=== PATIENT | male | born 1940 | race Caucasian/White ===

== ENCOUNTER 2023-01-21 12:50 | Outpatient (RCR) | payer MEDICARE, SELFPAY ==
--- NOTE | 2023-01-21 16:16 | PT.OPEX ---
PT [place] Outpatient Eval PT [facility] Outpatient Eval Start: 01/21/23 13:01 Freq: Status: Active Protocol: Document 01/21/23 13:05 YARON (Rec: 01/21/23 16:14 YARON [id number]) E-signed By Kristen Sage PT Physical Therapy Outpatient Evaluation Insurance Information Recert Due Date 04/20/23 Insurance Name Loc Medical Diagnosis LEFT OA M17.12 Treating Diagnosis LEFT KNEE PAIN M25.562 DIFFICULTY AMB R26.2 Referring MD GUTIERREZ Subjective Subjective I HAVEN'T BEEN ABLE TO WALK OR STAND MUCH FOR THE PAST YEAR AND HALF. IT'S REALLY HARD TO EVEN GET UP MY STEPS. 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 PVD AND CHARCOT FOOT Date of Last Physician Visit 12/09/22 Date of Next Physician Visit 01/29/23 Date of Surgery (If applicable) 02/04/23 Current Work Status Retired Preferred Name VAN Precautions Treatment Precautions/Contraindications COMORBIDITIES: PVD, PAF, AND THORACIC AAA WITH CHRONIC NON PRESSURE ULCERS BLE Objective Other/Pertinent Objective GAIT/FUNCTIONAL MOBILITY Single leg stance: RIGHT /LEFT GREAT DIFFICULTY D/T PVD Squat: LIMITED AND PAINFUL KNEE ROM Flexion: LEFT 126 AROM SUPINE Extension: LEFT +5 AROM SUPINE HIP ROM : WFL LLE MMT: 4-/5 JOINT MOBILITY/PALPATION : MEDIAL AND ANTERIOR JOINT LINE PAIN TX: SUPINE ANKLE PUMPS SUPINE QS SUPINE GS SUPINE HEEL SLIDES SUPINE TKE SUPINE SLR SEATED HR/TR SEATED KNEE EXT SEATED MARCHING SEATED HEEL SLIDE SEATED HAMSTRING STRETCH SEATED HAMSTRING STRETCH ON CHAIR Functional Test Performed & Score TU.2 SEC TINETTI:08/27 Assessment Assessment/Impression PATIENT IS A [address] 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 PATIENT LIVES WITH HIS SPOUSE IN A 2 STORY HOME WITH 2 STEPS TO ENTER WITH RAILING THROUGH THE GARAGE WELL FRONT DOOR. HIS BEDROOM AND MAIN BATHROOM WITH WALK IN SHOWER ARE LOCATED ON THE 2ND FLOOR WITH >10 STEPS W/RAILING. HE HAS RECENTLY EXPERIENCED OPEN SORES TO HIS LEFT LOWER EXTREMITY D/T PVD THAT ARE BEING MONITORED. HE IS IN GOOD SPIRITS REGARDING UPCOMING SURGERY AND EAGER TO REGAIN HIS ABILITY TO WALK W/O FATIGUE AND PAIN. HE HAS RECENTLY PURCHASED A SPC THAT HE HAS BEEN USING SINCE HIS MULTIPLE FALLS D/T BALANCE BUT WILL ALSO HAVE FWW TO USE POST OPERATIVELY. HIS SON WILL BE AVAILABLE TO ASSIST AFTER SURGERY ALONG WITH HIS . HE IS PLANNING ON SLEEPING IN HIS BED ON THE SECOND FLOOR POSTOPERATIVELY AND UNDERSTANDS THE DIFFICULTY AND RISKS INVOLVED. WE DISCUSSED POST OPERATIVELY SYMPTOM MGMT AND PRECAUTIONS REGARDING HIS ELIQUIS AND WEARING HIS SALEEM HOSE. HE VERBALIZED UNDERSTANDING OF ALL SKILLED INSTRUCTION THROUGH TEACH BACK AND PROVIDED A WRITTEN FOLDER WITH ALL THE INSTRUCTIONS AND EXERCISES TO FOLLOW AND FAMILIARIZE HIMSELF WITH PREOPERATIVELY. I WILL SEE ON 02/06/23 FOR FIRST POST OP. Primary Functional Limitations STRENGTH ROM GAIT STAIRS TRANSFERS Plan of Care Rehabilitation Potential Good Physical Therapy Goals ST. PATIENT WILL BE INDEPENDENT WITH HIS PREOPERATIVE HEP IN 1 WEEK. 2. PATIENT WILL VERBALIZE GOOD UNDERSTANDING OF SYMPTOM MGMT WELL WOUND MGMT IN 1 WEEK Coordination/Communication With Referral Source Treatment Plan/Direct Interventions Gait Training,Ice/Cold/ Vasopneumatic,Joint Mobilization,Manual Therapy, Neuromuscular Re-ed, Therapeutic Activities, Therapeutic Exercises Frequency/Duration 2X/WK FOR 8-10 WEEKS Patient Will Be Discharged From Therapy Completion of LTG(s), Independently Progressing Discharge Plan Comments DISCHARGE TO SELF WITH AN INDEPENDENT HEP WHEN GOALS MET Evaluation Billing PT Eval No Charge No Complexity High Certification Information Initial Certification Date 01/21/23 Ending Certification Date 04/20/23 Provider Signature Shows Agreement With POC & Medical Necessity Physician Comment/Change : Physician NPI Number #
== END 2023-03-27 15:26 | disposition home or self-care (01) ==
PROVIDERS: PCP Student in an Organized Health Care Education/Training Program; Visit Provider Orthopaedic Surgery Sports Medicine
DX: M17.12 Unilateral primary osteoarthritis, left knee (principal); Z96.652 Presence of left artificial knee joint; Z51.89 Encounter for other specified aftercare
CPT/HCPCS: 97110; 97163

== ENCOUNTER 2023-07-15 14:52 | Outpatient (CLI) | payer MEDICARE, SELFPAY | END 2023-07-15 14:53 | disposition home or self-care (01) | LOC: NFLDREF 07-17 10:38 | PROVIDERS: PCP Student in an Organized Health Care Education/Training Program; Referring Provider Student in an Organized Health Care Education/Training Program; Visit Provider Physician Assistant | DX: R30.0 Dysuria (principal); N39.0 Urinary tract infection, site not specified | CPT/HCPCS: 87086; 87186 ==

== ENCOUNTER 2023-08-10 15:19 | Emergency (ER) | payer MEDICARE, SELFPAY ==
[2023-08-10] VITALS (9 sets, daily range): BP systolic 124–143; BP diastolic 81–86; PULSE 59–80; RESP 20; TEMP 35.7; O2SAT 92–96; BMI 33.5
--- NOTE | 2023-08-10 15:56 | ED_ITS ---
HPI - SOB/Dyspnea General Chief Complaint: Shortness of Breath/Dyspnea Stated Complaint: Short of breath Time Seen by Provider: 08/10/23 15:31 History of Present Illness HPI Narrative: This 83-year-old male comes in stating that he has shortness of breath because of fluid overload. He states that he took Lasix for about 5 days about a month ago and lost 4 5 lb at that time and stated that this helped his breathing. This medicine was then discontinued until about 5 days ago when it was restarted because he was retaining fluid again. He states that he has continued to gain weight and has not been voiding urine despite taking the Lasix over these past few days. He was into a clinic appointment and was instructed to come here for further management. The patient denies having any chest pain. He states that he is in a rehab program and reports that he had oximetry at 96% at rest and it decreased to 91% with exertion. Today he states that he had to stop when ambulating from the car into the emergency department. At rest he does not show any sign of shortness of breath. Related Data Home Medications Medication Instructions Recorded Confirmed allopurinol 100 mg tablet 200 mg PO QDAY 08/23/22 07/15/23 amlodipine 5 mg tablet 5 mg PO QDAY 08/23/22 07/15/23 apixaban 2.5 mg tablet (Eliquis) 2.5 mg PO BID 08/23/22 07/15/23 atorvastatin 80 mg tablet 80 mg PO QHS 08/23/22 07/15/23 metoprolol tartrate 50 mg tablet 50 mg PO BID 08/23/22 07/15/23 omeprazole 20 mg capsule,delayed 20 mg PO BID 08/23/22 07/15/23 release tamsulosin 0.4 mg capsule ea PO 08/23/22 07/15/23 furosemide 20 mg tablet 20 mg PO QAM 08/10/23 08/10/23 Previous Rx's Medication Instructions Recorded furosemide 20 mg tablet (Lasix) 20 mg PO DAILY #30 tabs 08/10/23 Allergies Allergy/AdvReac Type Severity Reaction Status Date / Time No Known Drug Allergies Allergy Verified 07/15/23 15:01 Review of Systems Status of ROS: Reports: 10 or more systems reviewed and unremarkable except as noted in History and below Narrative: Constitutional: No fevers, no weight gain or loss. Eyes: No discharge. No vision changes. HENT: No congestion, no sore throat, no ear pain. Cardiovascular: No chest pain, no palpitations. Respiratory: No wheezes, no cough. Shortness of breath with exertion as described above. Gastrointestinal: No abdominal pain, no vomiting, no diarrhea. Genitourinary: No dysuria, no hematuria. Musculoskeletal: Normal range of motion. Left knee pain from arthritis. Skin: No rashes, no pruritis. Neurological: No dizziness, weakness, sensory change, speech change. Endo/Heme/Allergies: No bruising or bleeding. No polydipsia. Pysch: no suicidality, no anxiety, no insomnia. All other systems reviewed and are negative. [facility] Medical History (Updated 08/10/23 @ 16:44 by Willy Naidu MD) Encounter for screening for severe acute respiratory syndrome coronavirus 2 (SARS-CoV-2) infection ?Z11.52 - Encounter for screening for COVID-19 (ICD-10) Hyperlipidemia ?E78.5 - Hyperlipidemia, unspecified (ICD-10) Hypertension ?I10 - Essential (primary) hypertension (ICD-10) Ulcer of lower extremity ?L97.909 - Non-pressure chronic ulcer of unspecified part of unspecified lower leg with unspecified severity (ICD-10) Acquired pes planus of both feet ?M21.41 - Flat foot [pes planus] (acquired), right foot (ICD-10) ?M21.42 - Flat foot [pes planus] (acquired), left foot (ICD-10) Surgical History (Updated 12/03/22 @ 15:40 by Arabella Sandy) 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) ?Z96.651 - Presence of right artificial knee joint (ICD-10) H/O hernia repair (08/09/15) ?Z98.890 - Other specified postprocedural states (ICD-10) ?Z87.19 - Personal history of other diseases of the digestive system (ICD-10) H/O cystoscopy (05/30/19) ?Z98.890 - Other specified postprocedural states (ICD-10) Status post right foot surgery (06/13/21) ?Z98.890 - Other specified postprocedural states (ICD-10) Family History (Updated 01/13/23 @ 10:49 by Ginna Roberts RN) Father Abdominal aneurysm High blood pressure Hyperlipidemia Brother Hyperlipidemia Mother Breast cancer Social History (Reviewed 12/09/22 @ 14:33 by Edith Doe ~ [facility]) Smoking Status: Never smoker Do you use any of these nicotine containing products: None How often do you have a drink containing alcohol: 4 or more times a week Alcohol type: wine How many standard drinks containing alcohol do you have on a typical day: 3 or 4 How often do you have six or more drinks on one occasion: Never AUDIT-C Alcohol total score: 5 Non-prescribed substance use: denies use Caffeine: Yes (coffee, 3-4 cups/day; pop 5 cans/week) Exam Narrative: Exam Narrative: Constitutional: Well-developed, well-nourished, no acute distress. HEENT: Normocephalic, atraumatic. Neck: Normal range of motion. Nontender. Supple. Heart: Regular. No murmurs. Normal rate. Intact distal pulses. Lungs: Clear to auscultation. No chest discomfort. No wheezes, rhonchi, or rales. Abdomen: Normal bowel sounds. Nontender. No rebound tenderness. Genitalia: Deferred. Back: No midline tenderness. Normal range of motion. Extremities: Normal range of motion. No injury. Bilateral pedal edema. Skin: Intact. No rash. Warm. No erythema or pallor. Neurologic: No altered sensation. No weakness. Alert and oriented. Psychiatric: No suicidality. No anxiety or depression. No insomnia. Nursing notes and vitals signs are reviewed. Const: Vital Signs, click to edit/add: Vital Signs - 24 hr 08/10/23 15:23 08/10/23 15:43 08/10/23 15:44 Temperature 96.3 F L Pulse Rate 59 L 70 Pulse Rate [Pulse Oximeter] 70 Respiratory Rate 20 Blood Pressure 124/81 Blood Pressure [Ri ght Upper Arm] 143/86 H Pulse Oximetry 96 95 95 Oxygen Delivery Me thod Room Air 08/10/23 15:45 08/10/23 16:00 08/10/23 16:02 Temperature Pulse Rate 67 69 80 Pulse Rate [Pulse Oximeter] Respiratory Rate Blood Pressure 129/82 Blood Pressure [Ri ght Upper Arm] Pulse Oximetry 95 93 92 Oxygen Delivery Me thod 08/10/23 16:15 Temperature Pulse Rate 76 Pulse Rate [Pulse Oximeter] Respiratory Rate Blood Pressure Blood Pressure [Ri ght Upper Arm] Pulse Oximetry 93 Oxygen Delivery Me thod Course Vital Signs Vital signs: Initial Vital Signs Temperature 96.3 F L 08/10/23 15:23 Temperature Source Temporal Artery Scan 08/10/23 15:23 Pulse Rate 70 08/10/23 15:23 Respiratory Rate 20 08/10/23 15:23 Blood Pressure 143/86 H 08/10/23 15:23 Blood Pressure Mean 105 08/10/23 15:23 Blood Pressure Position Sitting 08/10/23 15:23 Pulse Oximetry 96 08/10/23 15:23 Oxygen Delivery Method Room Air 08/10/23 15:23 Vital Signs Temperature 96.3 F L 08/10/23 15:23 Pulse Rate 70 08/10/23 15:23 Respiratory Rate 20 08/10/23 15:23 Blood Pressure 143/86 H 08/10/23 15:23 Pulse Oximetry 96 08/10/23 15:23 Oxygen Delivery Method Room Air 08/10/23 15:23 Temperature 96.3 F L 08/10/23 15:23 Pulse Rate 76 08/10/23 16:15 Respiratory Rate 20 08/10/23 15:23 Blood Pressure 129/82 08/10/23 16:02 Pulse Oximetry 93 08/10/23 16:15 Oxygen Delivery Method Room Air 08/10/23 15:23 Medications Administered Medications: Discontinued Medications Generic Name Dose Route Start Last Admin Trade Name Freq PRN Reason Stop Dose Admin Furosemide 40 mg 08/10/23 15:55 08/10/23 16:03 Furosemide 10 Mg/Ml Inj IVP 08/10/23 15:56 40 mg ONCE ONE Administration MDM - SOB/Dyspnea MDM Narrative Medical decision making narrative: This patient has been working with his regular primary physician regarding fluid overload. He resume taking Lasix apparently at 20 mg a few days ago but states that he has instead gained weight. He arrives here with oximetry at 94-95% on room air. At rest he is not showing any sign of shortness of breath. He states that he had to stop and rest once when coming in from the car. EKG and lab resu lts here returned with reassuring findings. His creatinine is at 1.9 today. I do not have access to his clinic records as that is in a different system. The patient states that at 1 point a few weeks ago his creatinine returned at 2.85. After this it was measured at 1.2. The patient did receive 40 mg of Lasix intravenously here. I did prescribe extra tablets of 20 mg dosing for Lasix and recommended that he take 40 mg or 2 tablets daily and then follow up with his primary physician. The patient states that he does have a follow-up appointment with his doctor next week. Lab Data Labs: Lab Results 08/10/23 08/10/23 Range/Units 15:43 16:00 WBC 4.56 (4.50-11.00) K/uL RBC 4.01 L (4.30-5.90) m/uL Hgb 11.7 L (13.5-17.5) gm/dL Hct 37.8 (37.0-53.0) % MCV 94 (80-100) fL MCH 29 (26-34) pg MCHC 31 L (32-36) gm/dL RDW Coeff of Jessica 16.3 H (11.5-15.5) % Plt Count 190 (140-440) K/uL Neut % (Auto) 64.2 (42.0-72.0) % Lymph % (Auto) 19.3 L (20-44) % [place] % (Auto) 11.4 H (0.0-11.0) % Eos % (Auto) 3.5 (0.0-7.0) % Baso % (Auto) 0.9 (0.0-3.0) % Neut # (Auto) 2.93 (1.7-7.0) K/uL Lymph # (Auto) 0.90 (0.90-2.90) K/uL [place] # (Auto) 0.50 (0.00-0.90) K/UL Eos # (Auto) 0.16 (0.00-0.50) K/uL Baso # (Auto) 0.04 (0.00-0.30) K/uL Abs Immat Gran (auto) 0.03 (0.00-0.30) K/uL Imm/Tot Granulo (auto) 0.7 % Sodium 139 (135-149) mmol/L Potassium 4.4 (3.6-5.1) mmol/L Chloride 109 (96-114) mmol/L Carbon Dioxide 19 L (20-32) mmol/L Anion Gap 11 (7-15) mEq/L BUN 40 H (7-30) mg/dL Creatinine 1.9 H (0.5-1.5) mg/dL Estimated Creat Clear 31.77 Estimated GFR 34 ml/min Glucose 104 (60-115) mg/dL Calcium 9.3 (8.4-10.6) mg/dL NT-Pro-B Natriuret Pep 2060 pg/mL POC Troponin I 0.00 L (0.01-0.04) ng/ml ECG Data Attestation: I personally reviewed and interpreted this ECG as follows: Interpretation: Atrial fibrillation. Rate is 62 beats per minute. There are no specific ST or T-wave abnormalities. Discharge Plan Discharge Clinical Impression: Congestive heart failure Patient Disposition: Home, Self-Care Condition: Unchanged Additional Instructions: Take Lasix 2 tablets or 40 mg daily and follow up with primary physician to review medications. Return if worsening. Prescriptions: New furosemide [Lasix] 20 mg tablet 20 mg PO DAILY Qty: 30 2RF No Action metoprolol tartrate 50 mg tablet 50 mg PO BID Patient Comments: TAKE 1 TABLET BY MOUTH TWO TIMES DAILY. omeprazole 20 mg capsule,delayed release(DR/EC) 20 mg PO BID Patient Comments: TAKE 1 CAPSULE BY MOUTH ONCE DAILY BEFORE A MEAL. TAKE 30-60 MINUTES BEFORE A MEAL/FOOD ONCE A DAY. allopurinol 100 mg tablet 200 mg PO QDAY Patient Comments: TAKE 2 TABLETS BY MOUTH ONCE DAILY. amlodipine 5 mg tablet 5 mg PO QDAY atorvastatin 80 mg tablet 80 mg PO QHS Patient Comments: TAKE 1 TABLET BY MOUTH AT BEDTIME tamsulosin 0.4 mg capsule PO Patient Comments: TAKE 1 CAPSULE (0.4 MG) BY MOUTH ONCE DAILY AFTER A MEAL. Eliquis 2.5 mg tablet 2.5 mg PO BID furosemide 20 mg tablet 20 mg PO QAM Follow Up/Referrals: LEXIE ZUNIGA DO [Primary Care Provider] - Stand Alone [facility]
[2023-08-10] MEDS: FUROSEMIDE 10 MG/ML inj 40 MG IVP (16:03)
[2023-08-10 16:08] LABS: Basophils Absolute Auto 0.04 K/uL (0.00-0.30); Basophils Percent Auto 0.9 % (0.0-3.0); Chloride* 109 mmol/L (96-114); Eosinophils Absolute Auto 0.16 K/uL (0.00-0.50); Eosinophils Percent Auto 3.5 % (0.0-7.0); Hematocrit 37.8 % (37.0-53.0); Hemoglobin* 11.7 gm/dL (13.5-17.5); Immature Granulocytes Abs Auto 0.03 K/uL (0.00-0.30); Immature Granulocytes Pct Auto 0.7 %; Lymphocytes Percent Auto 19.3 % (20-44); Mean Corpuscular HGB Conc 31 gm/dL (32-36); Mean Corpuscular Hemoglobin 29 pg (26-34); Mean Corpuscular Volume 94 fL (80-100); Monocytes Percent Auto 11.4 % (0.0-11.0); Neutrophils Absolute Auto 2.93 K/uL (1.7-7.0); Neutrophils Percent Auto 64.2 % (42.0-72.0); Platelet Count* 190 K/uL (140-440); Potassium* 4.4 mmol/L (3.6-5.1); RDW Coefficient of Variation % 16.3 % (11.5-15.5); Red Blood Count 4.01 m/uL (4.30-5.90); Sodium* 139 mmol/L (135-149); White Blood Count* 4.56 K/uL (4.50-11.00)
[2023-08-10 16:11] LABS: Anion Gap 11 mEq/L (7-15); Carbon Dioxide* 19 mmol/L (20-32); Creatinine* 1.9 mg/dL (0.5-1.5); Est. Creatinine Clearance* 31.77; Estimated Glomerular Filt Rate 34 ml/min
[2023-08-10 16:12] LABS: Blood Urea Nitrogen* 40 mg/dL (7-30); Calcium* 9.3 mg/dL (8.4-10.6); Glucose* 104 mg/dL (60-115)
[2023-08-10 16:24] LABS: NT Pro B Type NatriureticPept* 2060 pg/mL; Slide Review Reflex No
== END 2023-08-10 17:13 | disposition home or self-care (01) ==
PROVIDERS: Emergency Provider Emergency Medicine Emergency Medical Services; PCP Student in an Organized Health Care Education/Training Program
DX: I50.9 Heart failure, unspecified (principal)
CPT/HCPCS: 36415; 80048; 83880; 84484; 85025; 93005; 96374; 99284; J1940

== ENCOUNTER 2023-08-21 11:50 | Emergency (ER) | payer MEDICARE, SELFPAY ==
[2023-08-21] VITALS (69 sets, daily range): BP systolic 74–129; BP diastolic 45–91; PULSE 50–66; RESP 24; TEMP 32.3–33.6; O2SAT 85–97
--- NOTE | 2023-08-21 12:00 | ED.NURSE ---
Triston Duarte applied to pt.
[2023-08-21 12:24] LABS: Lactate* 1.3 mmol/L (0.5-1.9)
--- NOTE | 2023-08-21 12:30 | ED.GENADULT ---
HPI - General Adult General Date Seen: 08/21/23 Chief complaint: Weakness Stated complaint: Syncope Time Seen by Provider: 08/21/23 12:04 History of Present Illness HPI narrative: 83-year-old gentleman presenting to the ER today by EMS. History is limited by acuity and mental status History from EMS is that he has had some recent lower extremity edema and has had increasing doses of Lasix at home. He was supposed to have gone into the clinic today for an echocardiogram. He had 2 falls yesterday. This morning his neighbor came over to drive him to his appointment. He was dizzy and had a syncopal event and went unresponsive. 911 was called. When they arrived the patient was unresponsive and bradycardic. They administered atropine for heart rate in the 30s. Heart rate came u to the 50s. History from the patient is difficult. His speech is slurred and at times are not understand. It sounds like he has had peripheral edema for the past couple of weeks. He has been getting weaker lately. He says he was normal this morning and in the kitchen before his appointment. He wanted to drive himself but instead is neighbor came to take him to his appointment. He has not had any recent fever. No cough. No chest pain. When asked directly he does say that he got short of breath last night walking up the steps. History from the patient's and neighbor is that he does have a history of CHF. He has had increased peripheral edema lately and has had open sores that have been weeping from both of his legs. His [facility] doctors increased his Lasix from 20 mg up to 40 mg last week. He was supposed to have gone for a follow-up echo which was scheduled for today. notes that he has been very weak the past several days. He has had slurred speech all week long. It does not really come or go. She also suspects he may have a left facial droop. Yesterday he had 2 or maybe 3 falls. One of them occurred when he apparently tried to grab onto an office chair that was on wheels and rotated. He lost his balance. Another fall occurred after he had walked up a flight of steps. It sounds like he just got weak and fell to the floor. He does not recall those events to be associated with any chest pain, palpitations. He was definitely short of breath when he got to the top of the steps. No known injuries from the fall. He denies any pain. As he is resting in bed he feels comfortable. His core temperature was 90? F taken orally when he arrived here. He was bradycardic to the 40s. We established active external rewarming with Triston Hugger. Heart rate has now come up to the 50s during my evaluation. 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 Lipitor 80 mg Celebrex 100 mg Oxycodone 5 mg Flomax Amoxicillin before dental appointment Labs: 08/06 Sodium 142, potassium 4.7, chloride 108, bicarb 23, BUN 28, creatinine 1.34, BNP 2 332 06/01 Creatinine 1.26 Related Data Home Medications Medication Instructions Recorded Confirmed allopurinol 100 mg tablet 200 mg PO QDAY 08/23/22 08/21/23 amlodipine 5 mg tablet 5 mg PO QDAY 08/23/22 08/21/23 apixaban 2.5 mg tablet (Eliquis) 2.5 mg PO BID 08/23/22 08/21/23 atorvastatin 80 mg tablet 80 mg PO QHS 08/23/22 08/21/23 metoprolol tartrate 50 mg tablet 50 mg PO BID 08/23/22 08/21/23 omeprazole 20 mg capsule,delayed 20 mg PO BID 08/23/22 08/21/23 release tamsulosin 0.4 mg capsule 0.4 mg PO Q24H 08/23/22 08/21/23 furosemide 20 mg tablet 20 mg PO QAM 08/10/23 08/21/23 celecoxib 100 mg capsule 100 mg PO BID 08/21/23 08/21/23 Previous Rx's Medication Instructions Recorded furosemide 20 mg tablet (Lasix) 20 mg PO DAILY #30 tabs 08/10/23 Allergies Allergy/AdvReac Type Severity Reaction Status Date / Time No Known Drug Allergies Allergy Verified 08/21/23 16:28 PFSH PFS Medical History (Updated 08/21/23 @ 16:52 by Pablito Bey MD) Encounter for screening for severe acute respiratory syndrome coronavirus 2 (SARS-CoV-2) infection ?Z11.52 - Encounter for screening for COVID-19 (ICD-10) Hyperlipidemia ?E78.5 - Hyperlipidemia, unspecified (ICD-10) Hypertension ?I10 - Essential (primary) hypertension (ICD-10) Ulcer of lower extremity ?L97.909 - Non-pressure chronic ulcer of unspecified part of unspecified lower leg with unspecified severity (ICD-10) Acquired pes planus of both feet ?M21.41 - Flat foot [pes planus] (acquired), right foot (ICD-10) ?M21.42 - Flat foot [pes planus] (acquired), left foot (ICD-10) Surgical History (Updated 12/03/22 @ 15:40 by Arabella Sandy) 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) ?Z96.651 - Presence of right artificial knee joint (ICD-10) H/O hernia repair (08/09/15) ?Z98.890 - Other specified postprocedural states (ICD-10) ?Z87.19 - Personal history of other diseases of the digestive system (ICD-10) H/O cystoscopy (05/30/19) ?Z98.890 - Other specified postprocedural states (ICD-10) Status post right foot surgery (06/13/21) ?Z98.890 - Other specified postprocedural states (ICD-10) Family History (Updated 01/13/23 @ 10:49 by Ginna Roberts RN) Father Abdominal aneurysm High blood pressure Hyperlipidemia Brother Hyperlipidemia Mother Breast cancer Social History (Reviewed 12/09/22 @ 14:33 by Edith Quick [facility], [facility]) Smoking Status: Never smoker Do you use any of these nicotine containing products: None How often do you have a drink containing alcohol: 4 or more times a week Alcohol type: wine How many standard drinks containing alcohol do you have on a typical day: 3 or 4 How often do you have six or more drinks on one occasion: Never AUDIT-C Alcohol total score: 5 Non-prescribed substance use: denies use Caffeine: Yes (coffee, 3-4 cups/day; pop 5 cans/week) Exam Narrative: Exam Narrative: Constitutional: Appears well-developed and well-nourished. Alert. Initially seems confused and speech is slurred but actually is alert and oriented to person place and time. He is able to recall 2 most details of this morning. He is not able to recall all the details of his falls yesterday or the past couple of days. Limited historian. HENT: Head: No depressed skull fracture, Raccoon Eyes, Serrano's sign, or hemotympanum. Face normal. TMs normal Nose: Nose normal. Mouth/Throat: Oral mucosa is clear but very dry. Mucous membranes are desiccated. no trismus. Pharynx normal. Tonsils symmetric. No tonsillar enlargement, erythema, or exudate. Eyes: Conjunctivae normal. EOM normal. Pupils equal, has had previous cataract surgery making his right pupil slightly irregular, and reactive to light. No scleral icterus. Neck: Normal range of motion. Neck supple. No tracheal deviation present. No posterior midline tenderness or step-off. Cardiovascular: Bradycardic, heart rate in the 50s, regular rhythm. No gallop. No friction rub. No murmur heard. Symmetric radial artery pulses . Not able to palpate pulses in his feet. Pulmonary/Chest: Effort normal. No stridor. No respiratory distress. No wheezes. No rales. No rhonchi . No tenderness. Abdominal: Soft. Bowel sounds normal. No distension. No mass. No tenderness. No rebound. No guarding. Musculoskeletal: RUE: Normal range of motion. No tenderness. No deformity LUE: Normal range of motion. No tenderness. No deformity Pelvis stable. Back nontender RLE: No tenderness, deformity, obvious injury. He does have trace amount of edema affecting his feet and ankle. He has chronic skin changes and thickening suggesting that he has the presence of some chronic edema. He has some open sores on his abdi. No active drainage but family reports a lot of serous drainage over the past few days. That skin of the abdi and calf and foot is pink but not warm to the touch. Normal blanching and cap refill . Not able to palpate DP pulses but that might be due to chronic thickening of the skin of the foot from his edema. Normal cap refill in the foot. LLE:No tenderness, deformity, obvious injury. He does have trace amount of edema affecting his feet and ankle. He has chronic skin changes and thickening suggesting that he has the presence of some chronic edema. He has some open sores on his abdi. No active drainage but family reports a lot of serous drainage over the past few days. That skin of the abdi and calf and foot is pink but not warm to the touch. Normal blanching and cap refill . Not able to palpate DP pulses but that might be due to chronic thickening of the skin of the foot from his edema. Normal cap refill in the foot. Right and left lower extremities are symmetric and there edema and redness. Lymph: No no ascending lymphangitis Neurological: . Attention normal. Alert and oriented x3. GCS 15. Memory limited. He gets confused when talking about his fall yesterday. Unreliable historian.. Speech slurred and sometimes seems to have garbled speech and she was the wrong words. At other times his speech is only minimally slurred and very comprehensible. Cranial Nerves intact II-XII except for subtle left facial droop at the corner of the mouth. He has intact sensory function bilaterally in V1, V2, V3. I did not formally test gag or visual acuity. EOMI. Palate elevates symmetrically and tongue protrudes in the midline. Strength: 5/5 trapezius on the right and left 5/5 deltoid on the right and left 5/5 biceps on the right and left 5/5 triceps on the right and left 5/5 blade groover on the right and left 5/5 thumb opposition on the right and left 5/5 finger abduction on the right and left Strength testing in the lower extremities is limited by his generalized weakness but he is able to lift each leg off the bed 5/5 hip flexors (L3) on the right and left 5/5 quadriceps (L4) on the right and left 5/5 tibialis anterior on the right and left 5/5 EHL (L5) on the right and left 5/5 gastrocnemius (S1) on the right and left 5/5 hamstring on the right and left Sensation intact to light touch in both upper extremities (C4-T1) Sensation intact to light touch in Both lower extremities (L4-S1). Upper extremity coordination normal. Gait not assessable due to weakness Skin: Ulcers on his shins, erythema of both lower extremities but no warmth. No other rash noted. No pallor. Normal capillary refill. Psychiatric: Normal mood. Normal affect. Const: Vital Signs, click to edit/add: Vital Signs - 24 hr 08/21/23 11:56 08/21/23 12:15 08/21/23 12:16 Temperature 90.2 F L Pulse Rate 54 L 56 L Pulse Rate [Pulse Oximeter] 60 Respiratory Rate 24 Blood Pressure 103/69 Blood Pressure [Ri ght Upper Arm] 104/70 Pulse Oximetry 95 95 94 Oxygen Delivery Me thod Room Air Oxygen Flow Rate Fraction of Inspir ed Oxygen 08/21/23 12:22 08/21/23 12:30 08/21/23 12:32 Temperature Pulse Rate 63 59 L 59 L Pulse Rate [Pulse Oximeter] Respiratory Rate Blood Pressure 97/69 100/71 Blood Pressure [Ri ght Upper Arm] Pulse Oximetry 96 94 94 Oxygen Delivery Me thod Oxygen Flow Rate Fraction of Inspir ed Oxygen 08/21/23 12:41 08/21/23 12:41 08/21/23 12:45 Temperature Pulse Rate 56 L 56 L 54 L Pulse Rate [Pulse Oximeter] Respiratory Rate Blood Pressure 96/68 96/68 Blood Pressure [Ri ght Upper Arm] Pulse Oximetry 94 94 94 Oxygen Delivery Me thod Oxygen Flow Rate Fraction of Inspir ed Oxygen 08/21/23 12:54 08/21/23 13:02 08/21/23 13:05 Temperature 90.6 F L Pulse Rate 58 L 52 L Pulse Rate [Pulse Oximeter] Respiratory Rate Blood Pressure Blood Pressure [Ri ght Upper Arm] Pulse Oximetry 93 93 Oxygen Delivery Me thod Oxygen Flow Rate Fraction of Inspir ed Oxygen 08/21/23 13:15 08/21/23 13:16 08/21/23 13:22 Temperature Pulse Rate 57 L 55 L 54 L Pulse Rate [Pulse Oximeter] Respiratory Rate Blood Pressure 99/69 90/77 Blood Pressure [Ri ght Upper Arm] Pulse Oximetry 91 92 88 Oxygen Delivery Me thod Oxygen Flow Rate Fraction of Inspir ed Oxygen 08/21/23 13:23 08/21/23 13:32 08/21/23 13:38 Temperature 90.8 F L Pulse Rate 56 L Pulse Rate [Pulse Oximeter] Respiratory Rate Blood Pressure 95/70 Blood Pressure [Ri ght Upper Arm] Pulse Oximetry 93 Oxygen Delivery Me thod Oxygen Flow Rate Fraction of Inspir ed Oxygen 08/21/23 13:42 08/21/23 13:45 08/21/23 13:51 Temperature Pulse Rate 56 L 56 L 54 L Pulse Rate [Pulse Oximeter] Respiratory Rate Blood Pressure 93/67 96/68 Blood Pressure [Ri ght Upper Arm] Pulse Oximetry 89 89 90 Oxygen Delivery Me thod Oxygen Flow Rate Fraction of Inspir ed Oxygen 08/21/23 14:00 08/21/23 14:01 08/21/23 14:02 Temperature 91.0 F L Pulse Rate 56 L Pulse Rate [Pulse Oximeter] Respiratory Rate Blood Pressure 91/62 Blood Pressure [Ri ght Upper Arm] Pulse Oximetry 89 90 Oxygen Delivery Me thod Oxygen Flow Rate Fraction of Inspir ed Oxygen 08/21/23 14:17 08/21/23 14:19 08/21/23 14:33 Temperature Pulse Rate 50 L Pulse Rate [Pulse Oximeter] Respiratory Rate Blood Pressure 88/57 L 82/50 L Blood Pressure [Ri ght Upper Arm] Pulse Oximetry 96 Oxygen Delivery Me thod Oxygen Flow Rate Fraction of Inspir ed Oxygen 08/21/23 14:43 08/21/23 14:45 08/21/23 14:47 Temperature Pulse Rate 57 L 57 L 55 L Pulse Rate [Pulse Oximeter] Respiratory Rate Blood Pressure 84/65 L Blood Pressure [Ri ght Upper Arm] Pulse Oximetry 92 92 92 Oxygen Delivery Me thod Oxygen Flow Rate Fraction of Inspir ed Oxygen 08/21/23 14:48 08/21/23 14:51 08/21/23 14:51 Temperature 91.4 F L Pulse Rate 52 L 51 L Pulse Rate [Pulse Oximeter] Respiratory Rate Blood Pressure 86/60 L Blood Pressure [Ri ght Upper Arm] Pulse Oximetry 93 91 Oxygen Delivery Me thod Oxygen Flow Rate Fraction of Inspir ed Oxygen 08/21/23 15:00 08/21/23 15:01 08/21/23 15:02 Temperature Pulse Rate 52 L 54 L 57 L Pulse Rate [Pulse Oximeter] Respiratory Rate Blood Pressure 81/60 L 83/59 L Blood Pressure [Ri ght Upper Arm] Pulse Oximetry 90 91 90 Oxygen Delivery Me thod Oxygen Flow Rate Fraction of Inspir ed Oxygen 08/21/23 15:12 08/21/23 15:15 08/21/23 15:22 Temperature Pulse Rate 54 L 54 L 55 L Pulse Rate [Pulse Oximeter] Respiratory Rate Blood Pressure 74/45 L 81/65 L Blood Pressure [Ri ght Upper Arm] Pulse Oximetry 89 89 89 Oxygen Delivery Me thod Oxygen Flow Rate Fraction of Inspir ed Oxygen 08/21/23 15:23 08/21/23 15:24 08/21/23 15:30 Temperature 91.8 F L Pulse Rate 59 L 53 L Pulse Rate [Pulse Oximeter] Respiratory Rate Blood Pressure Blood Pressure [Ri ght Upper Arm] Pulse Oximetry 90 89 Oxygen Delivery Me thod Oxygen Flow Rate Fraction of Inspir ed Oxygen 08/21/23 15:32 08/21/23 15:42 08/21/23 15:43 Temperature Pulse Rate 54 L 58 L 58 L Pulse Rate [Pulse Oximeter] Respiratory Rate Blood Pressure 78/54 L 108/74 Blood Pressure [Ri ght Upper Arm] Pulse Oximetry 88 89 88 Oxygen Delivery Me thod Oxygen Flow Rate Fraction of Inspir ed Oxygen 08/21/23 15:45 08/21/23 15:52 08/21/23 15:59 Temperature 91.9 F L Pulse Rate 58 L 65 Pulse Rate [Pulse Oximeter] Respiratory Rate Blood Pressure 125/59 L Blood Pressure [Ri ght Upper Arm] Pulse Oximetry 88 85 L Oxygen Delivery Me thod OxyMask Oxygen Flow Rate 6 Fraction of Inspir ed Oxygen 08/21/23 16:00 08/21/23 16:02 08/21/23 16:32 Temperature Pulse Rate 62 Pulse Rate [Pulse Oximeter] Respiratory Rate Blood Pressure 129/91 H 115/89 Blood Pressure [Ri ght Upper Arm] Pulse Oximetry 89 96 Oxygen Delivery Me thod OxyMask OxyMask CPAP Oxygen Flow Rate 6 6 Fraction of Inspir ed Oxygen 40 08/21/23 16:33 08/21/23 16:40 08/21/23 16:42 Temperature Pulse Rate 60 Pulse Rate [Pulse Oximeter] Respiratory Rate Blood Pressure 108/80 Blood Pressure [Ri ght Upper Arm] Pulse Oximetry 96 95 Oxygen Delivery Me thod CPAP CPAP Oxygen Flow Rate Fraction of Inspir ed Oxygen 40 40 40 08/21/23 16:45 08/21/23 16:46 08/21/23 16:58 Temperature 92.3 F L Pulse Rate 62 58 L Pulse Rate [Pulse Oximeter] Respiratory Rate Blood Pressure 110/78 Blood Pressure [Ri ght Upper Arm] Pulse Oximetry 95 95 Oxygen Delivery Me thod CPAP CPAP Oxygen Flow Rate Fraction of Inspir ed Oxygen 40 40 08/21/23 17:33 Temperature 92.5 F L Pulse Rate Pulse Rate [Pulse Oximeter] Respiratory Rate Blood Pressure Blood Pressure [Ri ght Upper Arm] Pulse Oximetry Oxygen Delivery Me thod Oxygen Flow Rate Fraction of Inspir ed Oxygen Course Vital Signs Vital signs: Initial Vital Signs Temperature 90.2 F L 08/21/23 11:56 Temperature Source Oral 08/21/23 11:56 Pulse Rate 60 08/21/23 11:56 Respiratory Rate 24 08/21/23 11:56 Blood Pressure 104/70 08/21/23 11:56 Blood Pressure Mean 81 08/21/23 11:56 Blood Pressure Position Supine 08/21/23 11:56 Pulse Oximetry 95 08/21/23 11:56 Oxygen Delivery Method Room Air 08/21/23 11:56 Vital Signs Temperature 90.2 F L 08/21/23 11:56 Pulse Rate 60 08/21/23 11:56 Respiratory Rate 24 08/21/23 11:56 Blood Pressure 104/70 08/21/23 11:56 Pulse Oximetry 95 08/21/23 11:56 Oxygen Delivery Method Room Air 08/21/23 11:56 Temperature 92.5 F L 08/21/23 17:33 Pulse Rate 58 L 08/21/23 16:46 Respiratory Rate 24 08/21/23 11:56 Blood Pressure 110/78 08/21/23 16:46 Pulse Oximetry 95 08/21/23 16:46 Oxygen Delivery Method CPAP 08/21/23 16:46 Oxygen Flow Rate 6 08/21/23 16:02 Fraction of Inspired Oxygen 40 08/21/23 16:46 Medications Administered Medications: Generic Name Dose Route Start Last Admin Trade Name Freq PRN Reason Stop Dose Admin Piperacillin Sod/Tazobactam 100 mls @ 200 mls/hr 08/21/23 13:30 08/21/23 14:20 Sod 4.5 gm/ Sodium Chloride IVPB Infused Q6H DYLAN Infusion Norepinephrine/Dextrose 4,000 mcg in 250 mls @ 42.354 mls/hr 08/21/23 15:00 08/21/23 15:35 Norepinephrine 4 Mg/250 Ml IV 0.2 mcg/kg/min CONT PRN 84.71 mls/hr Titration Protocol 0.1 MCG/KG/MIN Discontinued Medications Generic Name Dose Route Start Last Admin Trade Name Luiz PRN Reason Stop Dose Admin Dexamethasone 10 mg 08/21/23 12:40 08/21/23 13:19 Dexamethasone 4 Mg/Ml Vial IV 08/21/23 12:41 10 mg ONCE ONE Administration Sodium Chloride 1,000 mls @ 1,000 mls/hr 08/21/23 12:40 08/21/23 14:20 0.9 % Sodium Chloride 1000 Ml IV 08/21/23 13:39 Infused .Q1H DYLAN Infusion Vancomycin HCl 1,750 mg/ 517.5 mls @ 258.75 mls/hr 08/21/23 13:16 08/21/23 16:44 Sodium Chloride IVPB 08/21/23 13:17 Infused ONCE ONE Infusion Protocol Azithromycin 500 mg/ Sodium 255 mls @ 255 mls/hr 08/21/23 13:39 08/21/23 15:03 Chloride IVPB 08/21/23 13:40 Infused ONCE ONE Infusion Sodium Chloride 1,000 mls @ 1,000 mls/hr 08/21/23 14:45 08/21/23 16:43 0.9 % Sodium Chloride 1000 Ml IV 08/21/23 15:44 Infused .Q1H DYLAN Infusion Sodium Chloride 1,000 mls @ 1,000 mls/hr 08/21/23 14:45 08/21/23 16:44 0.9 % Sodium Chloride 1000 Ml IV 08/21/23 15:44 1,000 mls/hr .Q1H DYLAN Administration Medical Decision Making [facility] Narrative Medical decision making narrative: 83-year-old gentleman with a complex presentation to the Hypothermia. Patient has a core temperature of 90.4? taken orally and confirmed rectally. Unclear source. No known environmental exposure. He does in the house and his is not cold. He apparently does tend to run low with his core temperature, but there are no charted temperature is with his recent clinic visits to [facility]. No definite known environmental exposure that because of hypothermia. He does functional in his house and his is not cold. Consider infectious, endocrine, metabolic causes for his hypothermia. Ordered steroids for possible adrenal insufficiency. Ordered antibiotics for possible sepsis. He was significantly bradycardic at home with heart rate in the 30s. He received atropine per paramedics and heart rate has been in the 50s and 60s (AFib) here in the ER. Blood pressure stable. Other than slurred speech and some confusion he is mentating reasonably well. At this point I do not think he needs active internal rewarming. Were pursuing aggressive external rewarming with blankets, Triston Hugger, warm IV fluids, and warming his room. With these intervention we have been able to get his temperature up from 90.2 up to 92.5. Continuing to act externally rewarming. Consider endocrine causes of hypothermia. TSH is elevated but free T4 is normal, arguing against hypothyroid crisis Renal. Does have an acute kidney injury. Baseline creatinine was about 1.3 last week including. Creatinine is almost tripled up to 3.3. BUN 69. Suspect prerenal. Suspect probably dehydration from over-diuresis. Potassium 5.3, Morocho catheter placed for urine output monitoring. Cardiovascular. Has a history of CHF. Has been on gurney increasing doses of Lasix since last week due to peripheral edema and suspicion for CHF. Last week BNP level was 2332. Today BNP is only marginally elevated at 1420. and chest x-ray shows right-sided infiltrates or possibly pleural effusion. Left lung looks fairly clear. EKG nonspecific changes but no definite ischemia. Troponin negative. Has not been having any chest pain. Has atrial fibrillation with slow ventricular response today. Suspect bradycardia might be related hypothermia. Has a history of paroxysmal AFib and is on Eliquis. Infectious disease. Consider infection or sepsis as a cause for hypothermia. White count low at 3.6. He does have erythema of both legs which appears chronic. They are not warm to the touch but that may because he just has generally low body temperature. Broad-spectrum antibiotics with Zosyn and vanco to cover for sepsis of unknown etiology would cover possible skin infection. I do not detect any evidence for abscess or necrotizing infection in his legs on my exam. He does have bilateral abdi erythema which I think is chronic but could represent a possible acute infection. Chest x-ray shows a possible right lung pneumonia so we will broaden coverage with Azithromycin to cover pulmonary pathology. I have also ordered CT scan abdomen pelvis to look for intra-abdominal sources of sepsis. Formal radiology interpretation is pending but by my read does not show any acute inflammation. CT scan of his chest does show a large right pleural effusion and also a right lower lobe consolidation/infiltrate. After placement of Morocho catheter were able to send urine for to look for UTI. Urinalysis pending at the time of this dictation. Venous lactic is 1.3. Initial Blood pressure normal. As we were going through his resuscitation and rewarming he did develop hypotension with pressures down to about 78/42. Although we were concerned about CHF with hypotension and concern for septic shock we did administer IV fluid bolus. I ordered a total of 30 mL/kg-3 L of crystalloid. He received 2 L of saline plus about 2600 mL of fluids with his antibiotics. While we were pursuing that fluid resuscitation we also started the patient on Levophed drip to protect his mean arterial pressure. Initial Levophed was at 0.1 mcg/kg/minute. We titrated up to 0.2 and blood pressure was at goal up to 114/90. We titrated Levophed back down to 0.1 and then we were able to turn off the Levophed and maintain map above 65. At this time blood pressure is normal off Levophed. Heme. White count 3.6 (baseline 4.5), hemoglobin 10.7 (down from baseline around 11.7), platelet count 101 (down from baseline 190). Pancytopenia. No signs of active bleeding. Pulmonary. Initially was Breathing easily. Oxygen normal. Blood gas shows normal pH and pCO2. Chest x-ray shows right-sided infiltrates. Antibiotic coverage broadened with Azithromycin to cover for community-acquired pneumonia. Had worsening cough and increasing shortness of breath while here in the ER. Concern was for possible worsening CHF with his fluid resuscitation to protect his blood pressure. He did become hypoxic with sats down the high 80s on room air. We put him initially on OxyMask (because he was mouth breathing) and sats came up work of breathing remained high. Respiratory rate was in on 30. We put him on BiPAP. With this his work of breathing improved and saturations came up to the mid 90s. We were able to titrate his FiO2 downward to maintain norm oxy a. Currently on 40% FiO2. Suspected shortness of breath is likely multifactorial. Due to in part pneumonia, in part CHF, in part pleural effusion. I have ordered a CT PA to evaluate for possible PE. Formal report is pending at the time of this dictation but by my read does not show any central PE. He is chronically anticoagulated on Eliquis for stroke prophylaxis with AFib. Neuro. Had slurred speech and left facial droop ongoing for about a week a week or so. Concern is for possible subacute stroke. Stat noncontrast head CT was obtained and is negative for any intracranial bleed. No definite signs of any subacute stroke. Would need MRI for further evaluation. Already on Eliquis. Alcohol normal. Blood sugar normal. Endocrine. Has hypothermia. Consider adrenal insufficiency or hypothyroidism. Steroids order to supplement for possible adrenal insufficiency. TSH elevated but free T4 normal, arguing against hypothermia. Lab Data Labs: Lab Results 08/21/23 08/21/23 Range/Units 12:10 12:39 WBC 3.64 L (4.50-11.00) K/uL RBC 3.69 L (4.30-5.90) m/uL Hgb 10.7 L (13.5-17.5) gm/dL Hct 34.5 L (37.0-53.0) % MCV 94 (80-100) fL MCH 29 (26-34) pg MCHC 31 L (32-36) gm/dL RDW Coeff of Jessica 16.3 H (11.5-15.5) % Plt Count 101 L (140-440) K/uL Neut % (Auto) 70.3 (42.0-72.0) % Lymph % (Auto) 15.7 L (20-44) % Stafford % (Auto) 11.5 H (0.0-11.0) % Eos % (Auto) 1.4 (0.0-7.0) % Baso % (Auto) 0.8 (0.0-3.0) % Neut # (Auto) 2.60 (1.7-7.0) K/uL Lymph # (Auto) 0.60 L (0.90-2.90) K/uL Stafford # (Auto) 0.40 (0.00-0.90) K/UL Eos # (Auto) 0.10 (0.00-0.50) K/uL Baso # (Auto) 0.00 (0.00-0.30) K/uL Abs Immat Gran (auto) 0.00 (0.00-0.30) K/uL Imm/Tot Granulo (auto) 0.3 % Diff Slide Review Acceptable Review (Acceptable) INR 1.17 H (0.91-1.10) VBG pH 7.343 (7.32-7.43) VBG pCO2 40 (40-50) mmHG VBG pO2 65.5 H (25-47) mmHG VBG HCO3 22 (21-28) mmol/L Sodium 140 (135-149) mmol/L Potassium 5.3 H (3.6-5.1) mmol/L Chloride 107 (96-114) mmol/L Carbon Dioxide 20 (20-32) mmol/L Anion Gap 13 (7-15) mEq/L BUN 69 H (7-30) mg/dL Creatinine 3.3 H (0.5-1.5) mg/dL Estimated GFR 18 ml/min Glucose 102 (60-115) mg/dL Lactate 1.3 (0.5-1.9) mmol/L Calcium 9.0 (8.4-10.6) mg/dL Total Bilirubin 0.8 (0.1-1.5) mg/dL AST 31 (12-35) U/L ALT 21 (4-50) U/L Alkaline Phosphatase 210 H (40-150) U/L Troponin I < 0.01 L (0.01-0.04) ng/mL NT-Pro-B Natriuret Pep 1420 pg/mL Total Protein 7.6 (6.0-8.3) g/dL Albumin 3.9 (3.3-5.0) g/dL TSH 10.100 H (0.270-4.200) uIU/mL Free T4 1.04 (0.70-1.85) ng/dL Ethyl Alcohol < 0.01 L (0.01-0.03) % SARS-CoV-2 (PCR) Negative SARS-CoV-2 (Negative) Influenza Type A (PCR) Negative PCR FLU A (Negative) Influenza Type B (PCR) Negative PCR FLU B (Negative) RSV (PCR) Negative PCR RSV (Negative) Imaging Data CT scan - head: Attestation: I have reviewed the pertinent imaging results. My impression: I reviewed the patient's images at about 1:[address] images that indicate that he was a little bit off center in the scanner so images are hard to read. There was an abnormality in the left cerebellar region possibly a chronic subdural or epidural hematoma but it is dark, not indicating acute blood. I called to see our Erwin discussed with the radiologist. She reviews the images while we were on the phone together. She thinks that the abnormal any and that identifying is probably related to the fact that the patient's Madelin in the scanner. Not an acute finding. Possibly something chronic. No signs of acute traumatic injury or intracranial hemorrhage. No signs of any subacute stroke that might be related to his slurred speech that is not been ongoing all week. She also notes that he has signs of sinusitis affecting his right frontal sinus with a polyp there. Final report yet to come. Chest x-ray: Attestation: I have reviewed the pertinent imaging results. My impression: Chest x-ray shows right-sided infiltrate suspicious for pneumonia by my read. ECG Data Attestation: I personally reviewed and interpreted this ECG as follows: Interpretation: Atrial fibrillation with slow ventricular response. Rate 58 MA Na QRS axis normal axis. ST segment/T wave: Nonspecific flattening. No ST segment elevation or depression. QTc: 520. Critical Care Time Critical Care Time Critical Care Time: Yes Attestation: The patient required my highest level preparedness to intervene emergently and I personally spent this critical care time directly and personally managing the patient. This critical care time included: Obtaining a history; Examining the patient; Pulse oximetry; Ordering and reviewing of studies; Arranging urgent treatment with development of a management plan; Evaluation of patients response to treatment; Frequent reassessment discussions with other providers. This critical care time was performed to assess and manage the high probability of imminent life-threatening deterioration that could result in multiorgan failure. It was exclusive of separate billable procedures and treating other patients and teaching time. Total Critical Care Time in Minutes: 65 Discharge Plan Discharge Clinical Impression: Sepsis, CHF (congestive heart failure), Septic shock, Hypothermia, Pleural effusion, LUX (acute kidney injury), Acute hyperkalemia, Pneumonia Patient Disposition: [facility] Prescriptions: No Action metoprolol tartrate 50 mg tablet 50 mg PO BID Patient Comments: TAKE 1 TABLET BY MOUTH TWO TIMES DAILY. omeprazole 20 mg capsule,delayed release(DR/EC) 20 mg PO BID Patient Comments: TAKE 1 CAPSULE BY MOUTH ONCE DAILY BEFORE A MEAL. TAKE 30-60 MINUTES BEFORE A MEAL/FOOD ONCE A DAY. allopurinol 100 mg tablet 200 mg PO QDAY Patient Comments: TAKE 2 TABLETS BY MOUTH ONCE DAILY. amlodipine 5 mg tablet 5 mg PO QDAY atorvastatin 80 mg tablet 80 mg PO QHS Patient Comments: TAKE 1 TABLET BY MOUTH AT BEDTIME tamsulosin 0.4 mg capsule 0.4 mg PO Q24H Patient Comments: TAKE 1 CAPSULE (0.4 MG) BY MOUTH ONCE DAILY AFTER A MEAL. Eliquis 2.5 mg tablet 2.5 mg PO BID furosemide 20 mg tablet 20 mg PO QAM furosemide [Lasix] 20 mg tablet 20 mg PO DAILY Qty: 30 2RF celecoxib 100 mg capsule 100 mg PO BID Stand Alone Forms: [facility]
--- NOTE | 2023-08-21 12:39 | CRLHL7_ITS ---
For Patients: As a result of the Century Cures Act, medical imaging exams and procedure reports are released immediately into your electronic medical record. You may view this report before your referring provider. If you have questions, please contact your health care provider. INDICATION: Slurred speech, falls. COMPARISON: None. TECHNIQUE: CT of the brain/head without the use of IV contrast. Multiplanar axial, coronal, and sagittal reformats were reconstructed. FINDINGS: Age related parenchymal atrophy. Scattered small hypodensities consistent with chronic microvascular ischemic change. No acute or subacute territorial infarct. No intracranial hemorrhage. No mass, mass effect, or midline shift. The ventricles are normal in size and shape. No fracture or focal osseous lesion. The mastoid and middle ears are clear. Chronic right mastoid sinusitis with opacification and bony thickening. There is an irregularly ossified lesion with granulated coarse calcifications at the ostiomeatal unit which is expanded and irregular. The other paranasal sinuses are clear.. Included orbit and globe are normal. IMPRESSION: 1. No acute intracranial finding. 2. Chronic right maxillary sinusitis. Please note that all CT scans at this facility use dose modulation, iterative reconstruction, and/or weight-based dosing when appropriate to reduce radiation dose to as low as reasonably achievable. Dictated by Liza Diaz MD @ 08/21/2023 4:34:38 PM (Electronically Signed)
[2023-08-21 12:58] LABS: Basophils Percent Auto 0.8 % (0.0-3.0); Eosinophils Percent Auto 1.4 % (0.0-7.0); Hematocrit 34.5 % (37.0-53.0); Hemoglobin* 10.7 gm/dL (13.5-17.5); Immature Granulocytes Pct Auto 0.3 %; Lymphocytes Percent Auto 15.7 % (20-44); Mean Corpuscular HGB Conc 31 gm/dL (32-36); Mean Corpuscular Hemoglobin 29 pg (26-34); Mean Corpuscular Volume 94 fL (80-100); Monocytes Percent Auto 11.5 % (0.0-11.0); Neutrophils Percent Auto 70.3 % (42.0-72.0); PCO2 VBG 40 mmHG (40-50); PO2 VBG 65.5 mmHG (25-47); Platelet Count* 101 K/uL (140-440); RDW Coefficient of Variation % 16.3 % (11.5-15.5); Red Blood Count 3.69 m/uL (4.30-5.90); White Blood Count* 3.64 K/uL (4.50-11.00); pH VBG 7.343 (7.32-7.43)
[2023-08-21 12:59] LABS: HCO3 VBG 22 mmol/L (21-28)
[2023-08-21 13:01] LABS: Chloride* 107 mmol/L (96-114); Slide Review Reflex Yes
[2023-08-21 13:02] LABS: Albumin* 3.9 g/dL (3.3-5.0); INR 1.17 (0.91-1.10); Potassium* 5.3 mmol/L (3.6-5.1); Prothrombin Time 15.7 Seconds; Sodium* 140 mmol/L (135-149)
[2023-08-21 13:04] LABS: Creatinine* 3.3 mg/dL (0.5-1.5); Estimated Glomerular Filt Rate 18 ml/min
[2023-08-21 13:05] LABS: Alanine Aminotransferase* 21 U/L (4-50); Alkaline Phosphatase* 210 U/L (40-150); Anion Gap 13 mEq/L (7-15); Aspartate Amino Transferase* 31 U/L (12-35); Bilirubin Total* 0.8 mg/dL (0.1-1.5); Blood Urea Nitrogen* 69 mg/dL (7-30); Carbon Dioxide* 20 mmol/L (20-32); Glucose* 102 mg/dL (60-115); Total Protein* 7.6 g/dL (6.0-8.3)
[2023-08-21 13:06] LABS: Ethanol* < 0.01 % (0.01-0.03)
[2023-08-21 13:16] LABS: NT Pro B Type NatriureticPept* 1420 pg/mL
--- NOTE | 2023-08-21 13:16 | CRLHL7_ITS ---
For Patients: As a result of the Century Cures Act, medical imaging exams and procedure reports are released immediately into your electronic medical record. You may view this report before your referring provider. If you have questions, please contact your health care provider. INDICATION: Short of breath, syncope COMPARISON: None. TECHNIQUE: 1 view chest radiograph. FINDINGS: Lung volumes are moderate. Hazy opacifications throughout the lung is suspicious for layering posterior effusion. The left lung is relatively well expanded and clear. No large consolidations. Cardiomegaly. Atherosclerotic aortic arch calcifications. Median sternotomy wires. Bones: No acute appearing osseous abnormalities. IMPRESSION: Suspect layering right pleural effusion. Dictated by Liza Diaz MD @ 08/21/2023 2:48:16 PM (Electronically Signed)
[2023-08-21] MEDS: 0.9 % SODIUM CHLORIDE 1000 ml 1,000 ML IV ×3 (13:19→16:44)
[2023-08-21] MEDS: dexAMETHasone 4 MG/ML VIAL 10 MG IV (13:19)
--- NOTE | 2023-08-21 13:21 | ED.NURSE ---
Continuous rectal thermometer monitoring started.
[2023-08-21 13:24] LABS: Troponin I* < 0.01 ng/mL (0.01-0.04)
[2023-08-21] MEDS: PIPERACILLIN/TAZOBACTAM 4.5 GM in 0.9 % SODIUM CHLORIDE Mini-bag 100 ML IVPB (13:48)
[2023-08-21] MEDS: AZITHROMYCIN 500 MG in 0.9 % SODIUM CHLORIDE 250 ml 250 ML 255 MG IVPB (13:57)
[2023-08-21 14:10] LABS: PCR FLU A Negative PCR FLU A (Negative); PCR FLU B Negative PCR FLU B (Negative); PCR RSV Negative PCR RSV (Negative)
[2023-08-21 14:11] LABS: SARS PCR* Negative SARS-CoV-2 (Negative)
[2023-08-21 14:16] LABS: Free T4 Free Thyroxine* 1.04 ng/dL (0.70-1.85)
[2023-08-21 14:20] LABS: Slide Review Acceptable Review (Acceptable)
--- NOTE | 2023-08-21 14:56 | CRLHL7_ITS ---
For Patients: As a result of the 21st Century Cures Act, medical imaging exams and procedure reports are released immediately into your electronic medical record. You may view this report before your referring provider. If you have questions, please contact your health care provider. INDICATION: Short of breath, hypothermia, hypotension COMPARISON: Same day CT for pulmonary embolus TECHNIQUE: CT of the abdomen and pelvis after the administration of intravenous contrast. Multiplanar axial, coronal, and sagittal reformats were reconstructed. Contrast: 95 mL Isovue 370 intravenously. This exam was obtained immediately after the Pulmonary embolism exam and a 2nd contrast bolus is not utilized. Oral contrast was not administered. FINDINGS: Lung bases: See same day chest CT. Liver: Normal. No masses. Normal vasculature. Gallbladder and biliary tree: Cholelithiasis. No biliary duct dilation. Pancreas: Normal. Spleen: Normal. Normal size, 13 cm. Adrenal glands: Hyper enhancing adrenal glands. No nodules. Kidneys and bladder: Bilateral renal parenchymal thinning, worse on the left. Small right renal simple cyst. No solid mass. No calculi. No urinary tract dilation. The urinary bladder is normal. GI: Normal. No dilated segments. No abnormal bowel wall thickening or hyperenhancement. Small stool burden. The appendix is normal. Vessels: Aorta and major branches, including the mesenteric vessels: Patent. Normal caliber. Moderate to heavy atherosclerotic plaques. IVC and tributaries: Normal. Mesenteric and portal veins: Normal. Peritoneum: There is also generalized retroperitoneal and mesenteric edema with small intra-abdominal ascites. Lymph nodes: Large bilateral distal external iliac chain lymph nodes. On the right the largest measures 2.3 x 2.1 cm. Largest on the left measures 3.0 x 2.1 cm. There are several other prominent lymph nodes in the pelvis including along both common iliac chains, the internal iliac chains, and in the groins. Very mildly prominent inferior retroperitoneal lymph nodes. For example there is a left lower periaortic lymph node that measures 1.3 x 1.3 cm. No mesenteric adenopathy. No gastrohepatic or significant periportal adenopathy.. Pelvis: Physiologic appearance of the reproductive organs. Bones: No acute fractures. No focal bone lesions. Advanced disc degenerative change in the lumbar spine. Bilateral L5 pars defects with grade 1 anterolisthesis of L5 on S1. Abdominal wall: Anasarca. IMPRESSION: 1. Bilateral renal atrophy. 2. Pleural effusions, anasarca, mesenteric and retroperitoneal edema, and small ascites. All suggestive of generalized volume overload. 3. Adenopathy extending from the inferior retroperitoneum to the groin. The largest lymph nodes are bilateral distal external iliac chain lymph nodes. Please note that all CT scans at this facility use dose modulation, iterative reconstruction, and/or weight-based dosing when appropriate to reduce radiation dose to as low as reasonably achievable. Dictated by Liza Diaz MD @ 08/21/2023 5:51:18 PM (Electronically Signed)
--- NOTE | 2023-08-21 14:56 | CRLHL7_ITS ---
For Patients: As a result of the Century Cures Act, medical imaging exams and procedure reports are released immediately into your electronic medical record. You may view this report before your referring provider. If you have questions, please contact your health care provider. INDICATION: Short of breath, hypothermia COMPARISON: Same-day chest radiograph. TECHNIQUE: CT angiogram chest with contrast, pulmonary embolism protocol. Multiplanar axial, coronal, and sagittal reformats are included. MIP images to improve detection of pulmonary emboli are included. Intravenous contrast: 95 mL Isovue 370 FINDINGS: PE: Well-timed contrast bolus. No pulmonary emboli. Mildly dilated main pulmonary artery, 3.2 cm. Dilated right heart chambers. Large reflux of contrast below the diaphragm. Heart and great vessels: No pericardial effusion. Normal cardiac chamber size. Heavy coronary atherosclerotic plaques. No aortic aneurysm. Lungs: Expiratory phase imaging. No nodules or masses. Compressive atelectasis in the right lower lobe. Prominent pulmonary vascular markings with mild peripheral septal thickening. No alveolar ground-glass opacification. Pleura: Moderate right pleural effusion. The effusion appears simple and is layering posteriorly and inferiorly. There is a trace posterior left pleural effusion. No pneumothorax. Airway: Normal tracheobronchial tree. Lymph nodes: No thoracic adenopathy. Mediastinum: No pneumomediastinum. Bones: No fractures. No focal bone lesions. Median sternotomy wires. Chest wall: Anasarca. No masses. Upper abdomen: Cholelithiasis. Small upper abdominal ascites.. IMPRESSION: 1. No pulmonary embolus. 2. Mild pulmonary edema. Bilateral pleural effusions. Anasarca. Upper abdominal ascites. May be due to generalized volume overload. 3. Mildly dilated main pulmonary artery with dilated right heart chambers and significant reflux of contrast below the diaphragm. This may indicate elevated right heart pressures. 4. Very heavy atherosclerotic calcifications of the coronary arteries. Please note that all CT scans at this facility use dose modulation, iterative reconstruction, and/or weight-based dosing when appropriate to reduce radiation dose to as low as reasonably achievable. Dictated by Liza Diaz MD @ 08/21/2023 5:43:30 PM (Electronically Signed)
--- NOTE | 2023-08-21 15:45 | ED.NURSE ---
Pt became very SOB at conclusion of echo exam in room. Pt O2 sats down to ~82% and pt experiencing visibly labored breathing. Pt repositioned and boosted up in bed, Oxymask applied at 4L, then titrated up to 6L of O2. RT called to consult.
--- NOTE | 2023-08-21 16:00 | ED.NURSE ---
Pt to CT with television writer and RT accompanying. Pt on 6L Oxymask. Triston hugger and continuous rectal thermometer discontinued while pt was brought to CT.
--- NOTE | 2023-08-21 16:44 | ED.NURSE ---
Addendum entered by Homar Ricks RN 08/21/23 17:02: Triston hanna placed on patient again upon return from CT. Original Note: Pt brought back to room from CT. Switched from Oxymask to CPAP by RT. Continuous rectal thermometer initiated again.
--- NOTE | 2023-08-21 17:24 | ED.NURSE ---
16fr abarca catheter placed, UA sent to lab.
[2023-08-21 17:33] LABS: Appearance Urine Cloudy (Clear); Bilirubin Urine 1+ (Negative); Blood Urine Trace-intact (Negative); Color Urine Yellow (Yellow); Glucose Urine Negative (Negative); Ketones Urine Negative (Negative); Leukocyte Esterase Urine Negative (Negative); Nitrite Urine Negative (Negative); Protein Urine 2+ (Negative); Specific Gravity Urine >= 1.030 (1.000-1.030); Urobilinogen Urine 0.2 (0.2-1.0)
--- NOTE | 2023-08-21 17:34 | ED.NURSE ---
Report called to Christelle FORM CARPENTER.
[2023-08-21 17:43] LABS: Amorphous Sediment Urine Many; Squamous Epithelial Cell Urine Moderate (None-Few)
[2023-08-21 17:47] LABS: Fine Granular Casts Urine Many
--- NOTE | 2023-08-21 17:50 | ED.NURSE ---
Pt removed CPAP mask while EMS crew was preparing for transfer of pt. Pt maintaining O2 sats around ~92% on room air. Pt denies SOB at this time. Decision by EMS to transport pt to [place] ICU with Oxymask for O2 support at this time, bipap available in ambulance if needed in transit.
== END 2023-08-21 18:28 | disposition short-term general hospital (02) ==
PROVIDERS: Emergency Provider Emergency Medicine; PCP Student in an Organized Health Care Education/Training Program
DX: A41.9 Sepsis, unspecified organism (principal); I50.9 Heart failure, unspecified; N17.9 Acute kidney failure, unspecified; J18.9 Pneumonia, unspecified organism; E87.5 Hyperkalemia
CPT/HCPCS: 36415; 51702; 70450; 71045; 71275; 74177; 80053; 81001; 82077; 82803; 83605; 83880; 84439; 84443; 84484; 85025; 85610; 87040; 87631; 93306; 94660; 94761; 96365; 96366; 99285; 99291; J0456; J1100; J2543; J3370; J7030; J7050; J7120; Q9967

== ENCOUNTER 2023-08-21 18:00 | Outpatient (CLI) | payer MEDICARE, SELFPAY | END 2023-08-21 18:01 | disposition home or self-care (01) | LOC: AMB 08-22 07:40 | PROVIDERS: PCP Student in an Organized Health Care Education/Training Program; Visit Provider Family Medicine | DX: A41.9 Sepsis, unspecified organism (principal); I50.9 Heart failure, unspecified; J90 Pleural effusion, not elsewhere classified; E87.5 Hyperkalemia; N17.9 Acute kidney failure, unspecified; J18.9 Pneumonia, unspecified organism | CPT/HCPCS: A0425; A0426 ==